=== PATIENT | male | born 1945 | race Caucasian/White ===

== ENCOUNTER → 2024-05-23 | Outpatient (BNVA) | payer MEDICARE, MEDICAID, SELFPAY | END | disposition home or self-care (01) | PROVIDERS: PCP Physician Assistant; Referring Provider Physician Assistant; Visit Provider Urology | DX: C61 Malignant neoplasm of prostate (principal); N39.3 Stress incontinence (female) (male); N52.9 Male erectile dysfunction, unspecified; Z92.3 Personal history of irradiation; E66.9 Obesity, unspecified; Z68.28 Body mass index [BMI] 28.0-28.9, adult | CPT/HCPCS: 81003; 99212; G0463 ==

== ENCOUNTER 2024-06-16 07:32 | Outpatient (RCR) | payer MEDICARE, MEDICAID, SELFPAY | END 2024-07-01 23:59 | disposition home or self-care (01) | LOC: SCTC 07:32 | PROVIDERS: PCP Physician Assistant; Referring Provider Physician Assistant; Visit Provider Radiology Therapeutic Radiology | DX: Z51.11 Encounter for antineoplastic chemotherapy (principal); C61 Malignant neoplasm of prostate; Z92.3 Personal history of irradiation | CPT/HCPCS: 96402; J9217 ==

== ENCOUNTER 2024-07-10 08:41 | Outpatient (RCR) | payer MEDICARE, MEDICAID, SELFPAY ==
--- NOTE | 2024-07-10 09:40 | CTCFLWUP_ITS ---
[facility] [address] [place], [place] [address] Identification. FOLLOW-UP NOTE Date: 07/10/2024 MR#: [id number] Name: MIKA VELEZ : 1945 Dx: C61 Malignant neoplasm of prostate Identification. 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 Biochemical failure soon after surgery 0.59 on 11/14/2023. 6840 cGy delivered to the prostate bed region completed 02/22/2024. States that he feels fine with some periods of bowel and urinary incontinence. Assessment #1 pT3bN1 CA prostate status post radical prostatectomy [facility] 07/25/2023. #2 postop XRT completed. 02/22/2024 6040 centigrade. #3. Thus far had 4 Lupron injections over a years time tolerating well. #4. told to take Citracal twice daily. #5. check labs including PSA. #6. Another injection scheduled for September 12 and I will see him back in 3 months. Electronically signed by: Bryan Donaldson M.D. 07/10/2024 9:37 AM
== END 2024-08-01 23:59 | disposition home or self-care (01) ==
LOC: SCTC 08:41
PROVIDERS: PCP Student in an Organized Health Care Education/Training Program; Referring Provider Student in an Organized Health Care Education/Training Program; Visit Provider Radiology Therapeutic Radiology
DX: C61 Malignant neoplasm of prostate (principal); Z90.79 Acquired absence of other genital organ(s); Z92.3 Personal history of irradiation; Z79.818 Long term (current) use of other agents affecting estrogen receptors and estrogen levels
CPT/HCPCS: 99213; G0463

== ENCOUNTER → 2024-07-10 | Outpatient (CLI) | payer MEDICARE, MEDICAID, SELFPAY ==
[2024-07-10 10:44] LABS: Basophils % (Auto) 0 % (0-2.5); Eosinophils % (Auto) 0 % (0-10); Hematocrit 37.1 % (41.0-53.0); Hemoglobin 12.9 g/dL (13.5-16.0); Immature Granulocytes % (Auto) 0 % (0-0); Immature Granulocytes Auto 0.02 Thou/mm3 (0.00-0.00); Lymphocytes # (Auto) 0.8 Thou/mm3 (1.0-4.8); Lymphocytes % (Auto) 12 % (10-50); Mean Corpuscular HGB Conc 34.8 g/dl (31.0-37.0); Mean Corpuscular Hemoglobin 29.9 pg (25.0-35.0); Mean Corpuscular Volume 86 fL (80-100); Monocytes # (Auto) 0.6 Thou/mm3 (0.0-0.8); Monocytes % (Auto) 8 % (0-12); Neutrophils # (Auto) 5.6 Thou/mm3 (1.8-7.7); Neutrophils % (Auto) 79 % (37-80); Nucleated Red Blood Cell % 0 /100 WBC (0); Platelet Count 148 Thou/mm3 (140-440); RDW Standard Deviation 38.7 fL (35.1-43.9); Red Blood Count 4.31 Miln/mm3 (4.50-5.90); White Blood Count 7.1 Thou/mm3 (3.8-10.6)
[2024-07-10 11:06] LABS: Prostate Specific Antigen < 0.10 ng/mL (0-4.00)
[2024-07-10 11:16] LABS: Alanine Aminotransferase 27 U/L (10-49); Albumin, Serum 3.9 gm/dL (3.4-4.8); Albumin/Globulin Ratio 1.4 (1.2-2.2); Alkaline Phosphatase 116 U/L (46-116); Anion Gap 8 (7-16); Aspartate Amino Transferase 30 U/L (0-34); BUN/Creatinine Ratio 15 Ratio (12-20); Bilirubin,Total 0.7 mg/dL (0.3-1.2); Blood Urea Nitrogen 15 mg/dL (9-23); Calcium 9.3 mg/dL (8.3-10.6); Calcium (Corrected) 9.4 mg/dL (8.5-10.1); Carbon Dioxide 27.2 mMol/L (20.0-31.0); Chloride 106 mMol/L (98-107); Globulin 2.7 gm/dL (2.3-3.5); Glucose 93 mg/dL (74-106); Osmolality,Calculated 282 (275-295); Potassium 3.8 mMol/L (3.4-5.1); Sodium 141 mMol/L (136-145); Total Protein 6.6 gm/dL (5.7-8.2); eGFR > 60 See Note
== END | disposition home or self-care (01) ==
LOC: SCTO 10:00
PROVIDERS: PCP Physician Assistant; Referring Provider Radiology Therapeutic Radiology; Visit Provider Radiology Therapeutic Radiology
DX: C61 Malignant neoplasm of prostate (principal)
CPT/HCPCS: 36415; 80053; 84153; 85025

== ENCOUNTER 2024-09-15 13:05 | Outpatient (RCR) | payer MEDICARE, MEDICAID, SELFPAY | END 2024-09-29 23:59 | disposition home or self-care (01) | LOC: SCTC 13:05 | PROVIDERS: PCP Physician Assistant; Referring Provider Physician Assistant; Visit Provider Radiology Therapeutic Radiology | DX: Z51.11 Encounter for antineoplastic chemotherapy (principal); C61 Malignant neoplasm of prostate; Z90.79 Acquired absence of other genital organ(s); Z92.3 Personal history of irradiation; Z79.818 Long term (current) use of other agents affecting estrogen receptors and estrogen levels | CPT/HCPCS: 96402; J9217 ==

== ENCOUNTER 2024-10-08 09:18 | Outpatient (RCR) | payer MEDICARE, MEDICAID, SELFPAY ==
--- NOTE | 2024-10-08 10:15 | CTCFLWUP_ITS ---
[facility] [address] [place], [place] [address] FOLLOW-UP NOTE Date: 10/08/2024 MR#: [id number] Name: MIKA VELEZ : 1945 Dx: C61 Malignant neoplasm of prostate Identification. Patient with pT3bN1 C of the prostate status post radical prostate [facility] 07/25/2023. Document recurrence soon after surgery and patient had 6840 centigray delivered to prostate region, completed 02/22/2024. Patient getting regular Lupron injections for thus far the last 1 in August. PSA 10/06/2024 less than 0.1. Doing well with minimal pelvic symptoms tolerating injections well. Taking Citracal twice daily. I will see him back in 3 months with another PSA. Electronically signed by: Bryan Donaldson M.D. 10/08/2024 10:13 AM
== END 2024-10-29 23:59 | disposition home or self-care (01) ==
LOC: SCTC 09:18
PROVIDERS: PCP Physician Assistant; Referring Provider Physician Assistant; Visit Provider Radiology Therapeutic Radiology
DX: C61 Malignant neoplasm of prostate (principal); Z92.3 Personal history of irradiation; Z79.818 Long term (current) use of other agents affecting estrogen receptors and estrogen levels
CPT/HCPCS: 99212; G0463

== ENCOUNTER 2024-12-15 13:14 | Outpatient (RCR) | payer MEDICARE, MEDICAID, SELFPAY | END 2024-12-29 23:59 | disposition home or self-care (01) | LOC: SCTC 13:14 | PROVIDERS: PCP Physician Assistant; Referring Provider Physician Assistant; Visit Provider Radiology Therapeutic Radiology | DX: Z51.11 Encounter for antineoplastic chemotherapy (principal); C61 Malignant neoplasm of prostate; Z92.3 Personal history of irradiation | CPT/HCPCS: 96402; J9217 ==

== ENCOUNTER 2025-01-07 10:10 | Outpatient (RCR) | payer MEDICARE, MEDICAID, SELFPAY ==
--- NOTE | 2025-01-07 11:24 | CTCFLWUP_ITS ---
[facility] [address] [place], [place] [address] FOLLOW-UP NOTE Date: 01/07/2025 MR#: [id number] Name: MIKA VELEZ : 1945 Dx: C61 Malignant neoplasm of prostate Identification. Patient was pT3b N1c radical prostatectomy [facility] 07/25/2023. Final path group 3 Viridiana score 7 extraprostatic extension 1 positive node. On Lupron injections and received postop XRT 6840 cGy completed 02/22/2024. Minor hot flashes and minor rectal symptoms alleviated with Vaseline. PSA less than 0.1 October 07, 2024.. Patient taking calcium and vitamin D. Schedule patient for the next Lupron injections and see him back in 3 months with new labs. Electronically signed by: Bryan Donaldson M.D. 01/07/2025 11:21 AM
== END 2025-01-29 23:59 | disposition home or self-care (01) ==
LOC: SCTC 10:10
PROVIDERS: PCP Physician Assistant; Referring Provider Physician Assistant; Visit Provider Radiology Therapeutic Radiology
DX: C61 Malignant neoplasm of prostate (principal); Z90.79 Acquired absence of other genital organ(s); Z79.818 Long term (current) use of other agents affecting estrogen receptors and estrogen levels; Z92.3 Personal history of irradiation
CPT/HCPCS: 99213; G0463

== ENCOUNTER 2025-03-17 10:57 | Outpatient (RCR) | payer MEDICARE, MEDICAID, SELFPAY | END 2025-03-31 23:59 | disposition home or self-care (01) | LOC: SCTC 10:57 | PROVIDERS: PCP Physician Assistant; Referring Provider Internal Medicine; Visit Provider Radiology Therapeutic Radiology | DX: Z51.11 Encounter for antineoplastic chemotherapy (principal); C61 Malignant neoplasm of prostate; Z90.79 Acquired absence of other genital organ(s); Z92.3 Personal history of irradiation | CPT/HCPCS: 96402; J9217 ==

== ENCOUNTER 2025-04-09 08:45 | Outpatient (RCR) | payer MEDICARE, MEDICAID, SELFPAY ==
--- NOTE | 2025-04-09 09:25 | CTCFLWUP_ITS ---
[facility] [address] [place], [place] [address] FOLLOW-UP NOTE Date: 04/09/2025 MR#: [id number] Name: MIKA VELEZ : 1945 Dx: C61 Malignant neoplasm of prostate Identification. Patient with T3b N1 CA of the prostate radical mastectomy [facility] 07/25/2023. PSA rising 11/14/2023 0.59. Initiated Lupron injections as well as XRT to the prostate region 6040 cGy completed 02/22/2024. Has been on Lupron for the past year and a half. Tolerating well. Most recent PSA less than 0.1 on 04/02/2025. Taking calcium and vitamin D. Experiencing hot flashes but tolerable. Told patient below follow-up in 3 months and the likelihood of Lupron continue for about 6 more months. Electronically signed by: Bryan Donaldson M.D. 04/09/2025 9:23 AM
== END 2025-05-01 23:59 | disposition home or self-care (01) ==
LOC: SCTC 08:45
PROVIDERS: PCP Physician Assistant; Referring Provider Physician Assistant; Visit Provider Radiology Therapeutic Radiology
DX: C61 Malignant neoplasm of prostate (principal); Z92.3 Personal history of irradiation; Z79.818 Long term (current) use of other agents affecting estrogen receptors and estrogen levels; Z90.79 Acquired absence of other genital organ(s)
CPT/HCPCS: 99213; G0463

== ENCOUNTER 2025-06-16 09:48 | Outpatient (RCR) | payer MEDICARE, MEDICAID, SELFPAY | END 2025-07-01 23:59 | disposition home or self-care (01) | LOC: SCTC 09:48 | PROVIDERS: PCP Physician Assistant; Referring Provider Physician Assistant; Visit Provider Radiology Therapeutic Radiology | DX: Z51.11 Encounter for antineoplastic chemotherapy (principal); C61 Malignant neoplasm of prostate; Z90.79 Acquired absence of other genital organ(s); Z92.3 Personal history of irradiation | CPT/HCPCS: 96402; J9217 ==